=== PATIENT | female | born 1935 | race Caucasian/White ===

== ENCOUNTER → 2017-05-14 | Outpatient (CLI) | payer MEDICARE ==
[~2017-05-14] MED LIST: CALCIUM600 M2 PO; CILOXAN 5 ML5 M1 OP; CILOXAN 5 ML5 M1 OT; GLUCOSAMINE HC500 M1 PO; HYDROCODONE BIT1 T11 PO; METOPROLOL25 MG PO; PREMARIN0.625 MG PO; SINGULAIR10 MG PO; VITAMIN D400 UNI1 PO; VITAMIN E600 UNIT PO; ZANTAC150 MG PO
== END | disposition home or self-care (01) ==
LOC: NM 09:57
DX: M25.551 Pain in right hip (principal); Z96.641 Presence of right artificial hip joint

== ENCOUNTER → 2017-10-08 | Outpatient (CLI) | payer MEDICARE | END | disposition home or self-care (01) | LOC: US 15:20 | DX: R60.0 Localized edema (principal) ==

== ENCOUNTER → 2019-04-19 | Outpatient (CLI) | payer MEDICARE ==
[2019-04-19 09:35] VITALS: BP 119/67
== END | disposition home or self-care (01) ==
LOC: INJECTION 00:45
DX: M81.0 Age-related osteoporosis without current pathological fracture (principal); J45.909 Unspecified asthma, uncomplicated; K21.9 Gastro-esophageal reflux disease without esophagitis; I10 Essential (primary) hypertension

== ENCOUNTER → 2020-04-16 | Outpatient (CLI) | payer MEDICARE ==
[~2020-04-16] MED LIST changes: +CALCIUM 600 +1 EAC2 PO; -CALCIUM600 M2 PO; +LIPITOR20 MG PO; +LOPRESSOR25 MG PO; +PEPCID20 MG PO; +PLAVIX75 M1 PO
== END | disposition home or self-care (01) ==
LOC: US 14:00
PROVIDERS: ATTEND Family Medicine
DX: R60.0 Localized edema (principal)

== ENCOUNTER 2020-10-03 18:27 | Inpatient (IN) | payer MEDICARE ==
[~2020-10-03] VITALS: Ht 160 cm; Wt 58.3 kg
[2020-10-03 18:34] VITALS: BP 115/59
[2020-10-03 19:32] LABS: BASO % 0.3 % (0.0-1.0); EOS # 0.3 10*3/uL (0.0-0.4); EOS % 2.6 % (1.0-4.0); HEMATOCRIT 35.6 % (37.0-47.0); LYMPH # 1.6 10*3/uL (1.3-4.4); LYMPH % 16.1 % (27.0-41.0); MEAN CELL VOLUME 92.2 fl (81.0-99.0); MEAN CORPUSCULAR HGB 30.8 pg (27.0-31.0); MEAN CORPUSCULAR HGB CONC 33.4 g/dl (33.0-37.0); MEAN PLATELET VOLUME 9.2 fl (9.6-12.3); MONO # 0.9 10*3/uL (0.1-1.0); MONO % 9.4 % (3.0-9.0); NEUT # 7.1 10*3/uL (2.3-7.9); NEUT % 71.2 % (47.0-73.0); PLATELET COUNT AUTOMATED 352 10*3/uL (130-400); RED BLOOD COUNT 3.86 10*6/uL (4.10-5.10); RED CELL DISTRI WIDTH 13.7 % (0-14.5)
[2020-10-03 19:46] LABS: ALBUMIN 3.2 gm/dl (3.1-4.5); ALKALINE PHOSPHATASE 105 U/L (45-117); BUN 18 mg/dl (7-24); CHLORIDE 97 mmol/L (98-107); CREATININE 0.78 mg/dL (0.55-1.02); LIPASE 126 U/L (73-393); POTASSIUM 3.3 mmol/L (3.5-5.1); SGOT/AST 25 IU/L (3-35); SGPT/ALT 22 U/L (12-78); SODIUM 132 mmol/L (136-145); TOTAL PROTEIN 6.6 gm/dL (6.4-8.2)
[2020-10-03 19:50] LABS: TROPONIN I < 0.015 ng/ml (<0.045)
[2020-10-03 21:10] VITALS: BP 149/54
[2020-10-04] VITALS: BP 124/54
[2020-10-04 06:09] LABS: EOS % 0.3 % (1.0-4.0); HEMATOCRIT 33.6 % (37.0-47.0); LYMPH % 25.3 % (27.0-41.0); MEAN CELL VOLUME 93.1 fl (81.0-99.0); MEAN CORPUSCULAR HGB CONC 33.3 g/dl (33.0-37.0); MEAN PLATELET VOLUME 9.7 fl (9.6-12.3); MONO # 0.1 10*3/uL (0.1-1.0); MONO % 2.6 % (3.0-9.0); NEUT # 2.8 10*3/uL (2.3-7.9); NEUT % 71.5 % (47.0-73.0); PLATELET COUNT AUTOMATED 364 10*3/uL (130-400); RED BLOOD COUNT 3.61 10*6/uL (4.10-5.10); RED CELL DISTRI WIDTH 13.7 % (0-14.5); WHITE BLOOD COUNT 3.8 10*3/uL (4.8-10.8)
[2020-10-04 06:18] LABS: BUN 16 mg/dl (7-24); CHLORIDE 102 mmol/L (98-107); POTASSIUM 3.9 mmol/L (3.5-5.1); SODIUM 133 mmol/L (136-145)
[2020-10-04 08:00] VITALS: BP 129/52
[2020-10-04 16:00] VITALS: BP 106/52
[2020-10-04 20:00] VITALS: BP 119/41
[2020-10-05] VITALS: BP 120/49
[2020-10-05 08:00] VITALS: BP 124/61
[2020-10-05 08:46] LABS: BASO % 0.5 % (0.0-1.0); EOS # 0.3 10*3/uL (0.0-0.4); EOS % 4.4 % (1.0-4.0); HEMATOCRIT 36.9 % (37.0-47.0); LYMPH # 2.9 10*3/uL (1.3-4.4); LYMPH % 37.7 % (27.0-41.0); MEAN CELL VOLUME 95.6 fl (81.0-99.0); MEAN CORPUSCULAR HGB 30.8 pg (27.0-31.0); MEAN CORPUSCULAR HGB CONC 32.2 g/dl (33.0-37.0); MONO # 0.8 10*3/uL (0.1-1.0); MONO % 10.5 % (3.0-9.0); NEUT # 3.6 10*3/uL (2.3-7.9); NEUT % 46.5 % (47.0-73.0); PLATELET COUNT AUTOMATED 370 10*3/uL (130-400); RED BLOOD COUNT 3.86 10*6/uL (4.10-5.10); RED CELL DISTRI WIDTH 14.3 % (0-14.5); WHITE BLOOD COUNT 7.7 10*3/uL (4.8-10.8)
[2020-10-05 09:03] LABS: ALBUMIN 3.4 gm/dl (3.1-4.5); ALKALINE PHOSPHATASE 92 U/L (45-117); BUN 17 mg/dl (7-24); CHLORIDE 103 mmol/L (98-107); CREATININE 0.72 mg/dL (0.55-1.02); POTASSIUM 4.4 mmol/L (3.5-5.1); SGOT/AST 22 IU/L (3-35); SGPT/ALT 22 U/L (12-78); SODIUM 136 mmol/L (136-145); TOTAL PROTEIN 6.4 gm/dL (6.4-8.2)
[2020-10-05 12:00] VITALS: BP 119/43
[2020-10-05 16:00] VITALS: BP 105/47
[2020-10-05 20:00] VITALS: BP 124/50
[2020-10-06] VITALS: BP 135/58
[2020-10-06 06:00] LABS: BILIRUBIN Negative (Negative); BLOOD Negative (Negative); CLARITY Cloudy (Clear); COLOR Yellow (Yellow); GLUCOSE Trace (Negative); KETONE Negative (Negative); LEUKO ESTERASE Trace (Negative); NITRITE Negative (Negative); UROBILINOGEN 0.2 E.U./dl (0.0-1.0)
[2020-10-06 06:14] LABS: BACTERIA 2+
[2020-10-06 08:00] VITALS: BP 124/50
[2020-10-06] MEDS ORDERED: PREDNISONE10 MG PO (11:40)
[2020-10-06] MEDS ORDERED: HYDROCODONE-AC1 EAC1 PO (11:40)
== END 2020-10-06 13:52 | disposition home or self-care (01) | DRG 552 ==
LOC: ED 18:27 → EDHOLD 19:10 → 4E 19:10
PROVIDERS: Emergency Medicine; Internal Medicine; Social Worker Clinical; ADMIT Family Medicine; ATTEND Family Medicine
DX: M51.24 Other intervertebral disc displacement, thoracic region (principal); E87.1 Hypo-osmolality and hyponatremia; I08.1 Rheumatic disorders of both mitral and tricuspid valves; R26.81 Unsteadiness on feet; D64.9 Anemia, unspecified; E87.6 Hypokalemia; M47.816 Spondylosis without myelopathy or radiculopathy, lumbar region; E87.8 Other disorders of electrolyte and fluid balance, not elsewhere classified; R73.9 Hyperglycemia, unspecified; M48.04 Spinal stenosis, thoracic region; E78.5 Hyperlipidemia, unspecified; E89.0 Postprocedural hypothyroidism; J45.909 Unspecified asthma, uncomplicated; Z96.653 Presence of artificial knee joint, bilateral; R55 Syncope and collapse; I73.9 Peripheral vascular disease, unspecified; Z98.62 Peripheral vascular angioplasty status; Z88.2 Allergy status to sulfonamides; Z88.1 Allergy status to other antibiotic agents; Z90.710 Acquired absence of both cervix and uterus; Z79.899 Other long term (current) drug therapy; Z79.02 Long term (current) use of antithrombotics/antiplatelets

== ENCOUNTER 2021-03-11 13:15 | Inpatient (IN) | payer MEDICARE ==
[~2021-03-11] VITALS: Ht 160 cm; Wt 57.6 kg
[~2021-03-11 13:15] MED LIST changes: +HYDROCODONE-AC1 EAC1 PO; +PREDNISONE10 MG PO
[2021-03-11 13:16] VITALS: BP 107/56
[2021-03-11 14:13] LABS: BASO % 0.2 % (0.0-1.0); EOS # 0.1 10*3/uL (0.0-0.4); EOS % 1.7 % (1.0-4.0); HEMATOCRIT 39.7 % (37.0-47.0); LYMPH % 17.7 % (27.0-41.0); MEAN CELL VOLUME 94.1 fl (81.0-99.0); MEAN CORPUSCULAR HGB 28.9 pg (27.0-31.0); MEAN CORPUSCULAR HGB CONC 30.7 g/dl (33.0-37.0); MONO # 0.7 10*3/uL (0.1-1.0); MONO % 11.7 % (3.0-9.0); NEUT % 68.4 % (47.0-73.0); PLATELET COUNT AUTOMATED 305 10*3/uL (130-400); RED BLOOD COUNT 4.22 10*6/uL (4.10-5.10); WHITE BLOOD COUNT 5.8 10*3/uL (4.8-10.8)
[2021-03-11 14:24] LABS: ACT PARTIAL THROMBO TIME 28.9 SECONDS (20.0-32.1); INTERNATIONAL NORM RATIO 1.1 (2.0-3.5)
[2021-03-11 14:33] LABS: ALBUMIN 2.7 gm/dl (3.1-4.5); ALKALINE PHOSPHATASE 116 U/L (45-117); BUN 23 mg/dl (7-24); CHLORIDE 104 mmol/L (98-107); CREATININE 0.73 mg/dL (0.55-1.02); LIPASE 43 U/L (73-393); POTASSIUM 3.5 mmol/L (3.5-5.1); SGOT/AST 31 IU/L (3-35); SGPT/ALT 20 U/L (12-78); SODIUM 137 mmol/L (136-145); TOTAL PROTEIN 6.3 gm/dL (6.4-8.2)
[2021-03-11 17:19] VITALS: BP 117/57
[2021-03-11 19:41] VITALS: BP 138/48
[2021-03-11] MEDS ORDERED: TRAMADOL HCL50 MG PO (20:58)
[2021-03-11] MEDS ORDERED: SERTRALINE HYDR50 MG PO (20:58)
[2021-03-11] MEDS ORDERED: ELIQUIS5 M1 PO (20:59)
[2021-03-11] MEDS ORDERED: GABAPENTIN600 MG PO (21:00)
[2021-03-11] MEDS ORDERED: TIZANIDINE2 MG PO (21:00)
[2021-03-11] MEDS ORDERED: PANTOPRAZOLE SO40 MG PO (21:00)
[2021-03-11] MEDS ORDERED: MELATONIN3 MG PO (21:01)
[2021-03-11] MEDS ORDERED: LOVASTATIN20 MG PO (21:02)
[2021-03-11] MEDS ORDERED: FUROSEMIDE20 M1 PO (21:02)
[2021-03-11] MEDS ORDERED: TRIAMTERENE-HC1 EACH PO (21:04)
[2021-03-11 22:21] LABS: BILIRUBIN Negative (Negative); BLOOD Negative (Negative); CLARITY Clear (Clear); COLOR Dark Yellow (Yellow); GLUCOSE Negative (Negative); KETONE Negative (Negative); LEUKO ESTERASE Negative (Negative); NITRITE Negative (Negative); SPECIFIC GRAVITY >= 1.030 (1.001-1.030)
[2021-03-12] VITALS (7 sets, daily range): BP systolic 96–148; BP diastolic 37–88
[2021-03-12 06:11] LABS: BUN 17 mg/dl (7-24); CHLORIDE 106 mmol/L (98-107); POTASSIUM 3.2 mmol/L (3.5-5.1); SODIUM 137 mmol/L (136-145)
[2021-03-12 06:15] LABS: CREATININE 0.52 mg/dL (0.55-1.02)
[2021-03-12 06:18] LABS: EOS # 0.2 10*3/uL (0.0-0.4); EOS % 4.1 % (1.0-4.0); HEMATOCRIT 33.5 % (37.0-47.0); LYMPH # 1.5 10*3/uL (1.3-4.4); LYMPH % 27.9 % (27.0-41.0); MEAN CELL VOLUME 92.8 fl (81.0-99.0); MEAN CORPUSCULAR HGB 29.1 pg (27.0-31.0); MEAN CORPUSCULAR HGB CONC 31.3 g/dl (33.0-37.0); MEAN PLATELET VOLUME 9.7 fl (9.6-12.3); MONO # 0.9 10*3/uL (0.1-1.0); MONO % 15.8 % (3.0-9.0); NEUT # 2.8 10*3/uL (2.3-7.9); NEUT % 51.8 % (47.0-73.0); PLATELET COUNT AUTOMATED 303 10*3/uL (130-400); RED BLOOD COUNT 3.61 10*6/uL (4.10-5.10); RED CELL DISTRI WIDTH 14.9 % (0-14.5); WHITE BLOOD COUNT 5.4 10*3/uL (4.8-10.8)
[2021-03-12] MEDS ORDERED: ONDANSETRON4 MG SL (14:19)
== END 2021-03-12 14:20 | disposition home or self-care (01) | DRG 393 ==
LOC: ED 13:15 → EDHOLD 17:23
PROVIDERS: Emergency Medicine; Student in an Organized Health Care Education/Training Program; ADMIT Student in an Organized Health Care Education/Training Program; ATTEND Student in an Organized Health Care Education/Training Program
DX: K52.1 Toxic gastroenteritis and colitis (principal); E43 Unspecified severe protein-calorie malnutrition; E86.0 Dehydration; J45.909 Unspecified asthma, uncomplicated; M54.9 Dorsalgia, unspecified; R26.81 Unsteadiness on feet; Z20.822 Contact with and (suspected) exposure to COVID-19; E78.5 Hyperlipidemia, unspecified; Z90.710 Acquired absence of both cervix and uterus; Z88.2 Allergy status to sulfonamides; Z88.7 Allergy status to serum and vaccine; Z79.1 Long term (current) use of non-steroidal anti-inflammatories (NSAID); Z79.899 Other long term (current) drug therapy; Z79.01 Long term (current) use of anticoagulants; Z98.62 Peripheral vascular angioplasty status

== ENCOUNTER → 2021-09-02 | Outpatient (CLI) | payer MEDICARE ==
[~2021-09-02] MED LIST changes: +ELIQUIS5 M1 PO; +FUROSEMIDE20 M1 PO; +GABAPENTIN600 MG PO; +LOVASTATIN20 MG PO; +MELATONIN3 MG PO; +ONDANSETRON4 MG SL; +PANTOPRAZOLE SO40 MG PO; +SERTRALINE HYDR50 MG PO; +TIZANIDINE2 MG PO; +TRAMADOL HCL50 MG PO; +TRIAMTERENE-HC1 EACH PO
[2021-09-02 15:22] LABS: BILIRUBIN Negative (Negative); BLOOD Negative (Negative); CLARITY Cloudy (Clear); COLOR Yellow (Yellow); GLUCOSE Negative (Negative); KETONE Negative (Negative); LEUKO ESTERASE 3+ (Negative); NITRITE Negative (Negative); PH 6.5 (4.5-8.0); UROBILINOGEN 0.2 E.U./dl (0.0-1.0)
[2021-09-02 15:35] LABS: BACTERIA 4+; WBC TNTC wbc/hpf (0-5)
== END | disposition home or self-care (01) ==
LOC: LAB 14:42
PROVIDERS: ATTEND Nurse Practitioner Family
DX: N39.41 Urge incontinence (principal)

== ENCOUNTER 2022-02-05 10:05 | Inpatient (IN) | payer MEDICARE ==
[~2022-02-05] VITALS: Ht 160 cm; Wt 59.2 kg
[2022-02-05 10:12] VITALS: BP 127/56
[2022-02-05] MEDS ORDERED: RIZATRIPTAN5 MG PO (10:15)
[2022-02-05] MEDS ORDERED: BUSPIRONE HCL7.5 MG PO (10:16)
[2022-02-05] MEDS ORDERED: CHOLESTYRAMINE P4 GM PO (10:16)
[2022-02-05 13:03] LABS: BASO % 0.3 % (0.0-1.0); EOS # 0.3 10*3/uL (0.0-0.4); EOS % 2.5 % (1.0-4.0); HEMATOCRIT 40.3 % (37.0-47.0); LYMPH # 1.7 10*3/uL (1.3-4.4); LYMPH % 14.2 % (27.0-41.0); MEAN CORPUSCULAR HGB 30.9 pg (27.0-31.0); MEAN CORPUSCULAR HGB CONC 32.5 g/dl (33.0-37.0); MEAN PLATELET VOLUME 9.6 fl (9.6-12.3); MONO # 0.9 10*3/uL (0.1-1.0); NEUT # 8.7 10*3/uL (2.3-7.9); NEUT % 74.6 % (47.0-73.0); PLATELET COUNT AUTOMATED 300 10*3/uL (130-400); RED BLOOD COUNT 4.24 10*6/uL (4.10-5.10); RED CELL DISTRI WIDTH 13.8 % (0-14.5); WHITE BLOOD COUNT 11.7 10*3/uL (4.8-10.8)
[2022-02-05 13:13] LABS: ACT PARTIAL THROMBO TIME 26.6 SECONDS (20.0-32.1)
[2022-02-05 13:26] LABS: ALKALINE PHOSPHATASE 114 U/L (45-117); BUN 22 mg/dl (7-24); CHLORIDE 106 mmol/L (98-107); LIPASE 112 U/L (73-393); POTASSIUM 4.1 mmol/L (3.5-5.1); SGPT/ALT 25 U/L (12-78); SODIUM 139 mmol/L (136-145); TOTAL PROTEIN 6.9 gm/dL (6.4-8.2)
[2022-02-05 14:30] VITALS: BP 131/60
[2022-02-05 14:40] LABS: BILIRUBIN Negative (Negative); BLOOD Negative (Negative); CLARITY Clear (Clear); COLOR Yellow (Yellow); GLUCOSE Negative (Negative); KETONE Negative (Negative); LEUKO ESTERASE 1+ (Negative); NITRITE Negative (Negative); UROBILINOGEN 0.2 E.U./dl (0.0-1.0)
[2022-02-05 15:02] LABS: BACTERIA 4+; EPITHELIAL CELLS 0-2; WBC 21-30 wbc/hpf (0-5)
[2022-02-05 18:09] VITALS: BP 120/65
[2022-02-05 21:50] VITALS: BP 149/64
[2022-02-06 02:30] VITALS: BP 148/51
[2022-02-06 04:57] LABS: ALKALINE PHOSPHATASE 92 U/L (45-117); BUN 15 mg/dl (7-24); CHLORIDE 102 mmol/L (98-107); CHOLESTEROL 135 mg/dL (<200); CREATININE 0.66 mg/dL (0.55-1.02); LDL CHOLESTEROL 54 mg/dL (9-159); SGPT/ALT 19 U/L (12-78); SODIUM 137 mmol/L (136-145); TOTAL PROTEIN 5.7 gm/dL (6.4-8.2); TRIGLYCERIDES 83 mg/dl (<150)
[2022-02-06 04:58] LABS: FREE T4 1.13 ng/dl (0.76-1.46)
[2022-02-06 06:15] LABS: BASO % 0.4 % (0.0-1.0); EOS # 0.8 10*3/uL (0.0-0.4); EOS % 10.3 % (1.0-4.0); HEMATOCRIT 37.1 % (37.0-47.0); LYMPH # 2.2 10*3/uL (1.3-4.4); LYMPH % 27.8 % (27.0-41.0); MEAN CELL VOLUME 95.1 fl (81.0-99.0); MEAN CORPUSCULAR HGB 30.8 pg (27.0-31.0); MEAN CORPUSCULAR HGB CONC 32.3 g/dl (33.0-37.0); MEAN PLATELET VOLUME 10.1 fl (9.6-12.3); MONO % 12.4 % (3.0-9.0); NEUT # 3.8 10*3/uL (2.3-7.9); NEUT % 48.7 % (47.0-73.0); PLATELET COUNT AUTOMATED 267 10*3/uL (130-400); RED CELL DISTRI WIDTH 13.8 % (0-14.5); WHITE BLOOD COUNT 7.7 10*3/uL (4.8-10.8)
[2022-02-06 06:17] LABS: ACT PARTIAL THROMBO TIME 28.1 SECONDS (20.0-32.1); INTERNATIONAL NORM RATIO 1.1 (2.0-3.5)
[2022-02-06 08:00] VITALS: BP 135/55
[2022-02-06 12:00] VITALS: BP 105/52
[2022-02-06 16:00] VITALS: BP 118/43
[2022-02-06 20:00] VITALS: BP 106/53
[2022-02-07] VITALS: BP 134/46
[2022-02-07 09:30] VITALS: BP 115/8
[2022-02-07 16:00] VITALS: BP 106/64
[2022-02-07 20:00] VITALS: BP 125/53
[2022-02-08] VITALS: BP 140/46
[2022-02-08 08:00] VITALS: BP 116/50
[2022-02-08 12:00] VITALS: BP 112/42
[2022-02-08 16:00] VITALS: BP 135/56
[2022-02-08 20:00] VITALS: BP 131/44
[2022-02-09] VITALS: BP 110/52
[2022-02-09 09:00] VITALS: BP 116/58
[2022-02-09 12:00] VITALS: BP 127/91
[2022-02-09 16:00] VITALS: BP 127/48; BP 154/55
[2022-02-09 20:00] VITALS: BP 125/74
[2022-02-10] VITALS: BP 130/53
[2022-02-10 09:00] VITALS: BP 115/31
[2022-02-10 12:00] VITALS: BP 104/68
[2022-02-10 16:00] VITALS: BP 142/51
[2022-02-10 20:00] VITALS: BP 132/62
[2022-02-11] VITALS: BP 141/52
[2022-02-11 08:00] VITALS: BP 98/63
[2022-02-11 12:00] VITALS: BP 132/56
[2022-02-11 16:00] VITALS: BP 148/73
[2022-02-11 20:00] VITALS: BP 115/86
[2022-02-11] MEDS ORDERED: ADVAIR 250/501 EA INH (21:36)
[2022-02-12] VITALS: BP 117/59
[2022-02-12 07:46] VITALS: BP 122/82
[2022-02-12 12:00] VITALS: BP 118/50
[2022-02-12 16:00] VITALS: BP 148/57
[2022-02-12 20:00] VITALS: BP 114/55
[2022-02-13] VITALS: BP 145/66
[2022-02-13 08:00] VITALS: BP 122/84
[2022-02-13 12:00] VITALS: BP 123/58
[2022-02-13] MEDS ORDERED: GABAPENTIN600 MG PO (12:28)
== END 2022-02-13 15:30 | DRG 535 ==
LOC: ED 10:05 → EDHOLD 17:10 → 5E 17:10
PROVIDERS: Emergency Medicine; Student in an Organized Health Care Education/Training Program; ADMIT Internal Medicine; ATTEND Internal Medicine
DX: S32.401A Unspecified fracture of right acetabulum, initial encounter for closed fracture (principal); E43 Unspecified severe protein-calorie malnutrition; N39.0 Urinary tract infection, site not specified; Z20.822 Contact with and (suspected) exposure to COVID-19; Z96.641 Presence of right artificial hip joint; E89.0 Postprocedural hypothyroidism; Z96.653 Presence of artificial knee joint, bilateral; D72.829 Elevated white blood cell count, unspecified; R10.2 Pelvic and perineal pain; G62.9 Polyneuropathy, unspecified; B96.20 Unspecified Escherichia coli [E. coli] as the cause of diseases classified elsewhere; Z88.1 Allergy status to other antibiotic agents; Z88.2 Allergy status to sulfonamides; Z95.820 Peripheral vascular angioplasty status with implants and grafts; Z90.710 Acquired absence of both cervix and uterus; W18.39XA Other fall on same level, initial encounter; Y93.89 Activity, other specified; Y92.89 Other specified places as the place of occurrence of the external cause; Y99.8 Other external cause status; Z68.23 Body mass index [BMI] 23.0-23.9, adult

== ENCOUNTER → 2022-02-21 | Outpatient (CLI) | payer MEDICARE ==
[~2022-02-21] MED LIST changes: +ADVAIR 250/501 EA INH; +BUSPIRONE HCL7.5 MG PO; +CHOLESTYRAMINE P4 GM PO; +RIZATRIPTAN5 MG PO
== END | disposition home or self-care (01) ==
LOC: ORTHO 01:03
PROVIDERS: ATTEND Orthopaedic Surgery
DX: S72.001A Fracture of unspecified part of neck of right femur, initial encounter for closed fracture (principal); X58.XXXA Exposure to other specified factors, initial encounter; Y93.89 Activity, other specified; Y92.89 Other specified places as the place of occurrence of the external cause; Y99.8 Other external cause status

== ENCOUNTER → 2022-03-13 | Outpatient (CLI) | payer MEDICARE | END | disposition home or self-care (01) | LOC: ORTHO 00:22 | PROVIDERS: ATTEND Orthopaedic Surgery | DX: S32.484D Nondisplaced dome fracture of right acetabulum, subsequent encounter for fracture with routine healing (principal); M97.01XD Periprosthetic fracture around internal prosthetic right hip joint, subsequent encounter; M85.851 Other specified disorders of bone density and structure, right thigh; X58.XXXD Exposure to other specified factors, subsequent encounter ==

== ENCOUNTER → 2022-03-21 | Outpatient (CLI) | payer MEDICARE | END | disposition home or self-care (01) | LOC: ORTHO 02:12 | PROVIDERS: ATTEND Orthopaedic Surgery | DX: S32.484D Nondisplaced dome fracture of right acetabulum, subsequent encounter for fracture with routine healing (principal); M97.01XD Periprosthetic fracture around internal prosthetic right hip joint, subsequent encounter; X58.XXXD Exposure to other specified factors, subsequent encounter ==

== ENCOUNTER → 2022-05-09 | Outpatient (CLI) | payer MEDICARE | END | disposition home or self-care (01) | LOC: ORTHO 00:56 | PROVIDERS: ATTEND Orthopaedic Surgery | DX: S32.484D Nondisplaced dome fracture of right acetabulum, subsequent encounter for fracture with routine healing (principal); X58.XXXD Exposure to other specified factors, subsequent encounter ==

== ENCOUNTER → 2022-06-16 | Outpatient (CLI) | payer MEDICARE ==
[2022-06-16 12:39] LABS: BILIRUBIN Negative (Negative); BLOOD Negative (Negative); CLARITY Cloudy (Clear); COLOR Yellow (Yellow); GLUCOSE Negative (Negative); KETONE Negative (Negative); LEUKO ESTERASE 3+ (Negative); NITRITE Negative (Negative); PH 5.5 (4.5-8.0); SPECIFIC GRAVITY 1.015 (1.001-1.030); UROBILINOGEN 0.2 E.U./dl (0.0-1.0)
[2022-06-16 13:44] LABS: BACTERIA 3+; EPITHELIAL CELLS 21-30; WBC TNTC wbc/hpf (0-5)
== END | disposition home or self-care (01) ==
LOC: LAB 11:59
PROVIDERS: ATTEND Nurse Practitioner Family
DX: R30.0 Dysuria (principal)

== ENCOUNTER → 2022-07-10 | Outpatient (CLI) | payer MEDICARE | END | disposition home or self-care (01) | LOC: RAD 13:55 | PROVIDERS: ATTEND Chiropractor | DX: M50.31 Other cervical disc degeneration, high cervical region (principal); M48.02 Spinal stenosis, cervical region; M25.78 Osteophyte, vertebrae ==

== ENCOUNTER → 2022-10-21 | Outpatient (CLI) | payer MEDICARE ==
[2022-10-24 12:08] LABS: CODFISH, IGE <0.10 kU/L (Class 0); EGG WHITE, IGE 0.32 kU/L (Class I); MILK (COW), IGE 0.41 kU/L (Class I); PEANUT, IGE <0.10 kU/L (Class 0); SOYBEAN, IGE <0.10 kU/L (Class 0); WHEAT, IGE 0.15 kU/L (Class 0/I)
[2022-10-24 21:06] LABS: ALTERNARIA ALTERNATA, IGE <0.10 kU/L (Class 0); AMERICAN ELM, IGE <0.10 kU/L (Class 0); ASPERGILLUS FUMIGATU, IGE <0.10 kU/L (Class 0); BERMUDA GRASS, IGE 0.61 kU/L (Class II); BIRCH, COMMON SILVER IGE 0.25 kU/L (Class 0/I); CLADOSPORIUM HERBARU, IGE <0.10 kU/L (Class 0); D FARINAE MITE <0.10 kU/L (Class 0); D PTERONYSSINUS <0.10 kU/L (Class 0); MAPLE LEAF SYCAMORE, IGE <0.10 kU/L (Class 0); MAPLE/BOX ELDER, IGE <0.10 kU/L (Class 0); MOUSE URINE IGE <0.10 kU/L (Class 0); PENICILLIUM CHRYSOGENUM, IGE <0.10 kU/L (Class 0); ROUGH PIGWEED, IGE <0.10 kU/L (Class 0); SHEEP SORREL (DOCK), IGE 0.13 kU/L (Class 0/I); SHORT RAGWEED, IGE 0.99 kU/L (Class II); TIMOTHY, IGE 7.51 kU/L (Class IV); WALNUT TREE, IGE 5.56 kU/L (Class IV); WHITE ASH, IGE 0.46 kU/L (Class I); WHITE MULBERRY, IGE <0.10 kU/L (Class 0); WHITE OAK, IGE <0.10 kU/L (Class 0)
== END | disposition home or self-care (01) ==
LOC: LAB 14:16
PROVIDERS: ATTEND Specialist
DX: J30.1 Allergic rhinitis due to pollen (principal)

== ENCOUNTER 2023-09-24 06:02 | Inpatient (IN) | payer MEDICARE ==
[~2023-09-24] VITALS: Ht 160 cm; Wt 55.1 kg
[2023-09-24 06:06] VITALS: BP 140/65
[2023-09-24 07:28] LABS: BASO % 0.3 % (0.0-1.0); EOS # 0.4 10*3/uL (0.0-0.4); EOS % 3.6 % (1.0-4.0); HEMATOCRIT 42.2 % (37.0-47.0); LYMPH # 1.5 10*3/uL (1.3-4.4); LYMPH % 13.1 % (27.0-41.0); MEAN CELL VOLUME 97.9 fl (81.0-99.0); MEAN CORPUSCULAR HGB 31.6 pg (27.0-31.0); MEAN CORPUSCULAR HGB CONC 32.2 g/dl (33.0-37.0); MEAN PLATELET VOLUME 9.4 fl (9.6-12.3); MONO # 0.7 10*3/uL (0.1-1.0); MONO % 6.4 % (3.0-9.0); NEUT # 8.8 10*3/uL (2.3-7.9); NEUT % 75.8 % (47.0-73.0); PLATELET COUNT AUTOMATED 261 10*3/uL (130-400); RED BLOOD COUNT 4.31 10*6/uL (4.10-5.10); WHITE BLOOD COUNT 11.6 10*3/uL (4.8-10.8)
[2023-09-24 07:41] LABS: ACT PARTIAL THROMBO TIME 26.5 SECONDS (20.0-32.1)
[2023-09-24 07:49] LABS: ALKALINE PHOSPHATASE 131 U/L (46-116); BUN 16 mg/dl (9-23); CHLORIDE 107 mmol/L (98-107); SGPT/ALT 26 U/L (5-49); TOTAL PROTEIN 6.8 gm/dL (6.0-8.0)
[2023-09-24] MEDS ORDERED: BUPIVACAINE 0.5% 10 ML VIAL SC ONE (08:05)
[2023-09-24 08:12] VITALS: BP 110/89
[2023-09-24] MEDS ORDERED: BISACODYL 5 MG TAB PO PRN (08:40)
[2023-09-24] MEDS ORDERED: Magnesium Hydroxide 30 ML UDC PO PRN (08:40)
[2023-09-24] MEDS ORDERED: BISACODYL 10 MG SUPP R PRN (08:40)
[2023-09-24] MEDS ORDERED: Acetaminophen/Hydrocodone 5 MG/325 MG TABLET PO PRN (08:40)
[2023-09-24] MEDS ORDERED: MORPHINE Sulfate 2 MG/ML SYR IV PRN (09:05)
[2023-09-24 09:26] LABS: BILIRUBIN Negative (Negative); BLOOD Trace-Intact (Negative); CLARITY Cloudy (Clear); COLOR Yellow (Yellow); GLUCOSE Negative (Negative); KETONE Negative (Negative); LEUKO ESTERASE 3+ (Negative); NITRITE Positive (Negative); PH 7.5 (4.5-8.0); UROBILINOGEN 0.2 E.U./dl (0.0-1.0)
[2023-09-24 09:28] VITALS: BP 137/78
[2023-09-24 09:43] LABS: BACTERIA 3+; WBC TNTC wbc/hpf (0-5)
[2023-09-24] MEDS ORDERED: Ondansetron Hydrochloride 4 MG/2 ML VIAL IV PRN (11:10)
[2023-09-24] MEDS ORDERED: Metoprolol Tartrate 25 MG TAB PO ONE (12:00)
[2023-09-24] MEDS ORDERED: Metoprolol Tartrate 25 MG TAB PO SCH (12:00)
[2023-09-24] MEDS ORDERED: TOPIRAMATE 100 MG TAB PO SCH (12:10)
[2023-09-24 16:14] VITALS: BP 128/52
[2023-09-24 20:27] VITALS: BP 117/58
[2023-09-24] MEDS ORDERED: Ketorolac Tromethamine 15 MG/ML VIAL IV PRN (20:30)
[2023-09-24 21:15] VITALS: BP 114/58
[2023-09-25] VITALS (9 sets, daily range): BP systolic 111–145; BP diastolic 40–82
[2023-09-25] MEDS ORDERED: ACETAMINOPHEN 100 ML IV ONE ×2 (01:40→02:19)
[2023-09-25] MEDS ORDERED: SODIUM CHLORIDE 0.9% 0 ML IV ONE (02:19)
[2023-09-25] MEDS ORDERED: Ketorolac Tromethamine 30 MG/ML VIAL IV ONE (06:00)
[2023-09-25 06:04] LABS: BASO % 0.4 % (0.0-1.0); EOS # 0.6 10*3/uL (0.0-0.4); EOS % 6.2 % (1.0-4.0); HEMATOCRIT 37.4 % (37.0-47.0); LYMPH # 1.7 10*3/uL (1.3-4.4); LYMPH % 16.6 % (27.0-41.0); MEAN CELL VOLUME 97.4 fl (81.0-99.0); MEAN CORPUSCULAR HGB 31.3 pg (27.0-31.0); MEAN CORPUSCULAR HGB CONC 32.1 g/dl (33.0-37.0); MEAN PLATELET VOLUME 9.5 fl (9.6-12.3); MONO # 0.8 10*3/uL (0.1-1.0); MONO % 7.6 % (3.0-9.0); NEUT % 68.8 % (47.0-73.0); PLATELET COUNT AUTOMATED 209 10*3/uL (130-400); RED BLOOD COUNT 3.84 10*6/uL (4.10-5.10); RED CELL DISTRI WIDTH 13.2 % (0-14.5); WHITE BLOOD COUNT 10.2 10*3/uL (4.8-10.8)
[2023-09-25 07:34] LABS: BUN 13 mg/dl (9-23); CHLORIDE 103 mmol/L (98-107); CHOLESTEROL 114 mg/dL (<200); LDL CHOLESTEROL 50 mg/dL (9-159); POTASSIUM 3.7 mmol/L (3.4-5.1); TRIGLYCERIDES 75 mg/dl (<150)
[2023-09-25] MEDS ORDERED: Cholecalciferol 2,000 UNIT TABLET (50 MCG) PO SCH (10:00)
[2023-09-25] MEDS ORDERED: Ropivacaine Hydrochloride 5 MG/ML 20 ML AMP IJ ONE (13:16)
[2023-09-25] MEDS ORDERED: DEXAMETHASONE SODIUM PHOSP/PRESERVATIVE FREE 10 MG/ML VIAL ONE (13:16)
[2023-09-25] MEDS ORDERED: Midazolam Hydrochloride 2 MG/2 ML VIAL ONE (13:16)
[2023-09-25] MEDS ORDERED: SODIUM CHLORIDE 0.9% 1,000 ML IV ONE (13:17)
[2023-09-25] MEDS ORDERED: Clindamycin Phosphate 50 ML IV ONE ×2 (14:00→15:10)
[2023-09-25] MEDS ORDERED: TRANEXAMIC ACID IN NACL,ISO-OS 100 ML IV ONE (15:15)
[2023-09-25] MEDS ORDERED: EPINEPHrine/Lidocaine Hydroc 20 ML VIAL ONE (15:16)
[2023-09-25] MEDS ORDERED: Ketamine Hydrochloride 50 MG/5 ML SYRINGE IV ONE (17:25)
[2023-09-25] MEDS ORDERED: fentaNYL CITRATE 100 MCG/2 ML VIAL IV ONE (17:25)
[2023-09-25] MEDS ORDERED: Lidocaine Hydrochloride 2% 10 ML AMP IM ONE (17:25)
[2023-09-25] MEDS ORDERED: PROPOFOL 200 MG/20 ML VIAL IV ONE (17:25)
[2023-09-25] MEDS ORDERED: Midazolam Hydrochloride 2 MG/2 ML VIAL IV ONE (17:25)
[2023-09-25] MEDS ORDERED: Phenylephrine Hydrochloride 10 MG/ML VIAL IV ONE (17:25)
[2023-09-25] MEDS ORDERED: Ondansetron Hydrochloride 4 MG/2 ML VIAL ONE (17:45)
[2023-09-26 00:09] VITALS: BP 134/66
[2023-09-26] MEDS ORDERED: FOAM BANDAGE 1 EACH BANDAGE T ONE (05:10)
[2023-09-26] MEDS ORDERED: FOAM BANDAGE HEEL T ONE (05:10)
[2023-09-26 06:05] LABS: BASO % 0.2 % (0.0-1.0); EOS % 0.1 % (1.0-4.0); HEMATOCRIT 36.1 % (37.0-47.0); LYMPH # 1.1 10*3/uL (1.3-4.4); LYMPH % 9.9 % (27.0-41.0); MEAN CELL VOLUME 96.5 fl (81.0-99.0); MEAN CORPUSCULAR HGB 31.6 pg (27.0-31.0); MEAN CORPUSCULAR HGB CONC 32.7 g/dl (33.0-37.0); MEAN PLATELET VOLUME 10.2 fl (9.6-12.3); MONO # 0.7 10*3/uL (0.1-1.0); MONO % 6.4 % (3.0-9.0); NEUT # 9.1 10*3/uL (2.3-7.9); NEUT % 82.9 % (47.0-73.0); PLATELET COUNT AUTOMATED 218 10*3/uL (130-400); RED BLOOD COUNT 3.74 10*6/uL (4.10-5.10); RED CELL DISTRI WIDTH 13.1 % (0-14.5)
[2023-09-26 06:20] LABS: BUN 11 mg/dl (9-23); CHLORIDE 106 mmol/L (98-107); POTASSIUM 3.9 mmol/L (3.4-5.1)
[2023-09-26 08:00] VITALS: BP 134/82
[2023-09-26 12:00] VITALS: BP 110/48
[2023-09-26] MEDS ORDERED: BUDESONIDE 0.5 MG AMP NEB SCH (13:50)
[2023-09-26] MEDS ORDERED: Albuterol Sulfate 2.5 MG/3 ML VIAL NEB SCH (13:50)
[2023-09-26] MEDS ORDERED: GABAPENTIN 600 MG TAB PO SCH (14:00)
[2023-09-26 16:00] VITALS: BP 124/58
[2023-09-26] MEDS ORDERED: Fluticasone Propionate/Salmeterol 250/50 diskus INH SCH (18:00)
[2023-09-26 20:00] VITALS: BP 119/48
[2023-09-26] MEDS ORDERED: APIXABAN 5 MG TAB PO SCH (22:00)
[2023-09-27] VITALS: BP 117/50
[2023-09-27 06:12] LABS: BASO % 0.4 % (0.0-1.0); EOS # 0.6 10*3/uL (0.0-0.4); EOS % 5.7 % (1.0-4.0); HEMATOCRIT 33.1 % (37.0-47.0); LYMPH # 2.8 10*3/uL (1.3-4.4); LYMPH % 25.1 % (27.0-41.0); MEAN CELL VOLUME 97.4 fl (81.0-99.0); MEAN CORPUSCULAR HGB 32.1 pg (27.0-31.0); MEAN CORPUSCULAR HGB CONC 32.9 g/dl (33.0-37.0); MEAN PLATELET VOLUME 10.4 fl (9.6-12.3); MONO # 1.5 10*3/uL (0.1-1.0); MONO % 13.2 % (3.0-9.0); NEUT % 55.1 % (47.0-73.0); PLATELET COUNT AUTOMATED 233 10*3/uL (130-400); RED CELL DISTRI WIDTH 13.3 % (0-14.5)
[2023-09-27 08:00] VITALS: BP 119/55
[2023-09-27 08:47] LABS: BUN 16 mg/dl (9-23); CHLORIDE 108 mmol/L (98-107); POTASSIUM 4.1 mmol/L (3.4-5.1)
[2023-09-27] MEDS ORDERED: ATORVASTATIN CALCIUM 20 MG TAB PO SCH (10:00)
[2023-09-27] MEDS ORDERED: Albuterol Sulfate 2.5 MG/3 ML VIAL NEB PRN (11:25)
[2023-09-27 12:00] VITALS: BP 121/80
[2023-09-27 16:00] VITALS: BP 107/43
[2023-09-27 17:20] VITALS: BP 123/44
[2023-09-27 20:00] VITALS: BP 109/41
[2023-09-28] VITALS: BP 136/55
[2023-09-28 05:57] LABS: BASO % 0.4 % (0.0-1.0); EOS # 0.7 10*3/uL (0.0-0.4); EOS % 6.7 % (1.0-4.0); HEMATOCRIT 34.5 % (37.0-47.0); LYMPH # 2.6 10*3/uL (1.3-4.4); LYMPH % 24.5 % (27.0-41.0); MEAN CELL VOLUME 97.7 fl (81.0-99.0); MEAN CORPUSCULAR HGB 31.2 pg (27.0-31.0); MEAN CORPUSCULAR HGB CONC 31.9 g/dl (33.0-37.0); MONO # 1.5 10*3/uL (0.1-1.0); MONO % 13.9 % (3.0-9.0); NEUT # 5.7 10*3/uL (2.3-7.9); NEUT % 53.7 % (47.0-73.0); PLATELET COUNT AUTOMATED 235 10*3/uL (130-400); RED BLOOD COUNT 3.53 10*6/uL (4.10-5.10); RED CELL DISTRI WIDTH 13.2 % (0-14.5); WHITE BLOOD COUNT 10.7 10*3/uL (4.8-10.8)
[2023-09-28 08:00] VITALS: BP 130/56
[2023-09-28 12:00] VITALS: BP 96/40
[2023-09-28 16:00] VITALS: BP 104/50
[2023-09-28 20:00] VITALS: BP 159/53
[2023-09-29] VITALS: BP 103/50
[2023-09-29 06:06] LABS: BASO % 0.3 % (0.0-1.0); EOS # 0.7 10*3/uL (0.0-0.4); EOS % 6.4 % (1.0-4.0); HEMATOCRIT 34.5 % (37.0-47.0); LYMPH # 2.1 10*3/uL (1.3-4.4); LYMPH % 20.2 % (27.0-41.0); MEAN CELL VOLUME 98.3 fl (81.0-99.0); MEAN CORPUSCULAR HGB 31.3 pg (27.0-31.0); MEAN CORPUSCULAR HGB CONC 31.9 g/dl (33.0-37.0); MEAN PLATELET VOLUME 9.3 fl (9.6-12.3); MONO # 1.4 10*3/uL (0.1-1.0); MONO % 13.9 % (3.0-9.0); NEUT # 6.1 10*3/uL (2.3-7.9); NEUT % 58.3 % (47.0-73.0); PLATELET COUNT AUTOMATED 247 10*3/uL (130-400); RED BLOOD COUNT 3.51 10*6/uL (4.10-5.10); RED CELL DISTRI WIDTH 13.1 % (0-14.5); WHITE BLOOD COUNT 10.4 10*3/uL (4.8-10.8)
[2023-09-29 06:35] LABS: BUN 12 mg/dl (9-23); CHLORIDE 104 mmol/L (98-107); POTASSIUM 3.7 mmol/L (3.4-5.1)
[2023-09-29 08:00] VITALS: BP 113/56
[2023-09-29] MEDS ORDERED: Ceftriaxone Sodium 1 GM in SYRINGE INFUSION 10 ML IV SCH (10:00)
[2023-09-29] MEDS ORDERED: CALCIUM CARBONATE/VITAMIN D3 500 MG/200 IU TABLET PO SCH (10:00)
[2023-09-29] MEDS ORDERED: MACROBID100 M1 PO (11:02)
[2023-09-29] MEDS ORDERED: HYDROCODONE-AC1 EAC1 PO (11:04)
[2023-09-29 12:00] VITALS: BP 104/50
[2023-09-29 16:00] VITALS: BP 110/55
[2023-09-29 20:00] VITALS: BP 111/38
== END 2023-09-29 21:30 | DRG 522 ==
LOC: ED 06:02 → 4E 08:05 → EDHOLD 08:05 → 4E 19:39
PROVIDERS: Emergency Medicine; Family Medicine; Orthopaedic Surgery; Student in an Organized Health Care Education/Training Program; ADMIT Internal Medicine; ATTEND Internal Medicine
PROC: 3E0T3BZ Introduction of Anesthetic Agent into Peripheral Nerves and Plexi, Percutaneous Approach (ICD-10-PCS; 2023-09-24)
PROC: 0SRS0JZ Replacement of Left Hip Joint, Femoral Surface with Synthetic Substitute, Open Approach (ICD-10-PCS; principal; 2023-09-25)
DX: S72.032A Displaced midcervical fracture of left femur, initial encounter for closed fracture (principal); J45.909 Unspecified asthma, uncomplicated; E89.0 Postprocedural hypothyroidism; G62.9 Polyneuropathy, unspecified; I73.9 Peripheral vascular disease, unspecified; R73.9 Hyperglycemia, unspecified; D72.829 Elevated white blood cell count, unspecified; Z79.899 Other long term (current) drug therapy; Z96.653 Presence of artificial knee joint, bilateral; Z79.01 Long term (current) use of anticoagulants; Z79.2 Long term (current) use of antibiotics; Z88.4 Allergy status to anesthetic agent; Z88.2 Allergy status to sulfonamides; Z88.8 Allergy status to other drugs, medicaments and biological substances; Z91.09 Other allergy status, other than to drugs and biological substances; Z90.710 Acquired absence of both cervix and uterus; W18.39XA Other fall on same level, initial encounter; Y93.89 Activity, other specified; Y92.89 Other specified places as the place of occurrence of the external cause; Y99.8 Other external cause status; Z86.711 Personal history of pulmonary embolism

== ENCOUNTER → 2023-10-12 | Outpatient (CLI) | payer MEDICARE ==
[~2023-10-12] MED LIST changes: +MACROBID100 M1 PO
== END | disposition home or self-care (01) ==
LOC: ORTHO 01:55
PROVIDERS: ATTEND Orthopaedic Surgery
DX: S32.484D Nondisplaced dome fracture of right acetabulum, subsequent encounter for fracture with routine healing (principal); X58.XXXD Exposure to other specified factors, subsequent encounter

== ENCOUNTER → 2023-11-25 | Outpatient (CLI) | payer MEDICARE | END | disposition home or self-care (01) | LOC: RESCLI 01:51 | PROVIDERS: ATTEND Internal Medicine | DX: G43.909 Migraine, unspecified, not intractable, without status migrainosus (principal); M25.552 Pain in left hip; E78.5 Hyperlipidemia, unspecified; F32.9 Major depressive disorder, single episode, unspecified; K21.9 Gastro-esophageal reflux disease without esophagitis; N32.81 Overactive bladder; I10 Essential (primary) hypertension; Z78.0 Asymptomatic menopausal state; J40 Bronchitis, not specified as acute or chronic; I82.90 Acute embolism and thrombosis of unspecified vein; Z41.8 Encounter for other procedures for purposes other than remedying health state; M81.0 Age-related osteoporosis without current pathological fracture; G62.9 Polyneuropathy, unspecified; E56.9 Vitamin deficiency, unspecified; Z98.890 Other specified postprocedural states; Z90.49 Acquired absence of other specified parts of digestive tract; Z90.710 Acquired absence of both cervix and uterus; Z79.82 Long term (current) use of aspirin; Z79.01 Long term (current) use of anticoagulants; Z79.899 Other long term (current) drug therapy ==

== ENCOUNTER → 2023-12-09 | Outpatient (CLI) | payer MEDICARE | END | disposition home or self-care (01) | LOC: ORTHO 02:24 | PROVIDERS: ATTEND Orthopaedic Surgery | DX: S72.032D Displaced midcervical fracture of left femur, subsequent encounter for closed fracture with routine healing (principal); X58.XXXD Exposure to other specified factors, subsequent encounter ==

== ENCOUNTER 2024-10-23 20:49 | Emergency (ER) | payer MEDICARE ==
[~2024-10-23] VITALS: Ht 162.5 cm; Wt 56.7 kg
[2024-10-23] MEDS ORDERED: FAMOTIDINE 50 ML IV ONE (21:00)
[2024-10-23] MEDS ORDERED: diphenhydrAMINE hydrochloride 50 MG/ML VIAL IV ONE (21:00)
[2024-10-23] MEDS ORDERED: EPINEPHrine Hydrochloride 1 MG/ML AMP IM ONE (21:15)
[2024-10-23] MEDS ORDERED: EPINEPHrine Hydrochloride 1 MG/ML AMP ONE (21:34)
== END 2024-10-23 22:57 | disposition home or self-care (01) ==
LOC: ED 20:49
DX: T63.461A Toxic effect of venom of wasps, accidental (unintentional), initial encounter (principal); Z98.890 Other specified postprocedural states; Z88.2 Allergy status to sulfonamides; Z88.8 Allergy status to other drugs, medicaments and biological substances; Z88.5 Allergy status to narcotic agent; Y92.89 Other specified places as the place of occurrence of the external cause

== ENCOUNTER 2025-02-17 18:55 | Emergency (ER) | payer MEDICARE ==
[~2025-02-17] VITALS: Ht 160 cm; Wt 52.2 kg
[2025-02-17] MEDS ORDERED: Tdap Vaccine 0.5 ML SYR (Adult Vaccine) IM ONE (19:10)
[2025-02-17] MEDS ORDERED: CEPHALEXIN 500 MG CAP PO ONE (20:05)
[2025-02-17] MEDS ORDERED: CEPHALEXIN500 M1 PO (21:24)
== END 2025-02-17 21:39 | disposition home or self-care (01) ==
LOC: ED 18:55
DX: S01.112A Laceration without foreign body of left eyelid and periocular area, initial encounter (principal); Z88.2 Allergy status to sulfonamides; Z88.5 Allergy status to narcotic agent; Z88.8 Allergy status to other drugs, medicaments and biological substances; Z98.890 Other specified postprocedural states; W19.XXXA Unspecified fall, initial encounter; Y93.89 Activity, other specified; Y92.89 Other specified places as the place of occurrence of the external cause; Y99.8 Other external cause status